=== PATIENT | female | born 1960 | race Caucasian/White ===

== ENCOUNTER → 2022-11-03 10:48 | Outpatient (CLI) | payer OTHER | END | disposition home or self-care (01) | LOC: LAB 10:48 | PROVIDERS: ATTEND Radiology Diagnostic Radiology | DX: C14.0 Malignant neoplasm of pharynx, unspecified (principal) ==

== ENCOUNTER 2022-11-03 11:28 | Outpatient (CLI) | payer OTHER | END 2022-11-03 11:39 | disposition home or self-care (01) | LOC: MRI 11:28 | PROVIDERS: ATTEND Obstetrics & Gynecology Gynecologic Oncology | DX: C54.1 Malignant neoplasm of endometrium (principal) | CPT/HCPCS: 72197 ==

== ENCOUNTER 2022-12-01 07:26 | Outpatient (CLI) | payer OTHER | END 2022-12-01 07:27 | disposition home or self-care (01) | LOC: NUCLEAR 07:26 | PROVIDERS: ATTEND Obstetrics & Gynecology Gynecologic Oncology | DX: C54.1 Malignant neoplasm of endometrium (principal) | CPT/HCPCS: 78815; A9552 ==

== ENCOUNTER 2022-12-07 07:00 | Outpatient (CLI) | payer OTHER | END 2022-12-07 07:04 | disposition home or self-care (01) | LOC: LAB 07:00 | PROVIDERS: ATTEND Internal Medicine | DX: U07.1 COVID-19 (principal); B34.1 Enterovirus infection, unspecified ==

== ENCOUNTER 2022-12-07 07:22 | Outpatient (CLI) | payer OTHER | END 2022-12-07 07:26 | disposition home or self-care (01) | LOC: NUCLEAR 07:22 | PROVIDERS: ATTEND Internal Medicine | DX: I25.10 Atherosclerotic heart disease of native coronary artery without angina pectoris (principal) | CPT/HCPCS: 78452; 93017; A9500 ==

== ENCOUNTER 2022-12-15 10:05 | Inpatient (IN) | payer OTHER ==
[~2022-12-15] VITALS: Ht 152.4 cm; Wt 90.7 kg
[2022-12-15] MEDS ORDERED: TOPROL XL25 M1 PO (15:05)
[2022-12-15] MEDS ORDERED: NORVASC2.5 M1 PO (15:05)
[2022-12-15] MEDS ORDERED: AVALIDE 300-121 EACH PO (15:05)
== END 2022-12-18 10:34 | disposition home or self-care (01) | DRG 741 ==
LOC: OB/GYN 12-17 05:36 → O/R 12-17 05:36 → OB/GYN 12-17 07:00
PROVIDERS: ADMIT Obstetrics & Gynecology Gynecologic Oncology; ATTEND Obstetrics & Gynecology Gynecologic Oncology
PROC: 0UT74ZZ Resection of Bilateral Fallopian Tubes, Percutaneous Endoscopic Approach (ICD-10-PCS; 2022-12-17)
PROC: 0UT24ZZ Resection of Bilateral Ovaries, Percutaneous Endoscopic Approach (ICD-10-PCS; 2022-12-17)
PROC: 07BC4ZZ Excision of Pelvis Lymphatic, Percutaneous Endoscopic Approach (ICD-10-PCS; 2022-12-17)
PROC: 0UT94ZZ Resection of Uterus, Percutaneous Endoscopic Approach (ICD-10-PCS; principal; 2022-12-17 07:00)
DX: C54.1 Malignant neoplasm of endometrium (principal); N84.0 Polyp of corpus uteri; Z20.822 Contact with and (suspected) exposure to COVID-19

== ENCOUNTER 2024-11-23 14:34 | Outpatient (CLI) | payer OTHER ==
[~2024-11-23 14:34] MED LIST: AVALIDE 300-121 EACH PO; NORVASC2.5 M1 PO; TOPROL XL25 M1 PO
== END 2024-11-23 14:36 | disposition home or self-care (01) ==
LOC: SONOGRAMA 14:34
PROVIDERS: ATTEND Pathology Anatomic Pathology & Clinical Pathology
DX: D44.0 Neoplasm of uncertain behavior of thyroid gland (principal); E04.2 Nontoxic multinodular goiter